=== PATIENT | female | born 1980 | race Caucasian/White ===

== ENCOUNTER 2016-12-24 23:19 | Emergency (ER) | payer SELFPAY ==
[2016-12-24] MEDS ORDERED: Lorazepam 2 MG/ML VIAL ONE (23:27)
[2016-12-24 23:58] LABS: Bilirubin Negative (Negative); Blood, Urine Trace (Negative); Clarity Slightly Cloudy (Clear); Glucose, Urine (Dipstick) Negative (Negative); Leukocyte Negative (Negative); Nitrite Negative (Negative); Protein, Urine (Dipstick) 30 mg/dL (Neg-Trace); Specific Gravity, Urine 1.025 (1.005-1.030); Urobilinogen 0.2 mg/dL (0.2-1.0)
[2016-12-25] LABS: Bacteria/HPF 1+ HPF (None Seen); Hyaline Casts/LPF 0-3 HYALINE CAST LPF (0-3 Hyaline); RBC/HPF 0-3 HPF (0-3); Squamous Epithelial 0-3 HPF (0-3); WBC/HPF 0-3 HPF (0-3)
[2016-12-25 00:01] LABS: Other Casts/LPF 4-6 FINELY GRAN LPF (0-3 Hyaline)
[2016-12-25] MEDS ORDERED: levETIRAcetam 500 MG/5 ML VIAL ONE (00:01)
[2016-12-25] MEDS ORDERED: Ketorolac Tromethamine 30 MG/ML VIAL ONE (00:04)
[2016-12-25] MEDS ORDERED: levETIRAcetam 1,500 MG in Sodium Chloride 0.9% 100 ML IVPB SCH (00:15)
[2016-12-25 00:22] LABS: #Basophils 0.1 thou/uL (0.0-0.2); #Lymphocytes 1.6 thou/uL (1.20-3.40); #Monocytes 0.8 thou/uL (0.11-0.59); #Neutrophils 11.7 thou/uL (1.40-6.50); %Basophils 0.6 % (0.0-1.0); %Eosinophils 0.1 % (0.0-10.0); %Lymphocytes 10.9 % (21.0-51.0); %Monocytes 5.7 % (0.0-10.0); %Neutrophils 82.7 % (42.0-75.0); Hemoglobin 13.6 g/dL (12.0-16.0); Mean Corpuscular HGB CONC 35.2 g/dL (32.0-36.0); Mean Corpuscular Volume 93.6 fl (81.0-99.0); Mean Platelet Volume 7.2 fL (7.4-10.4); Platelet Count 224 thou/uL (130-400); RBC Distribution Width 11.8 % (11.5-14.5); Red Blood Cell (RBC) Count 4.12 mill/uL (4.20-5.40); White Blood Cell (WBC) Count 14.2 thou/uL (4.8-10.8)
[2016-12-25 00:37] LABS: ALT (SGPT) 16 U/L (0-55); AST (SGOT) 18 U/L (5-34); Albumin 4.1 g/dL (3.5-5.0); Alkaline Phosphatase 89 U/L (40-150); Anion Gap 13 mmol/L (10-20); BUN (Urea Nitrogen) 6 mg/dL (7.0-18.7); Bilirubin, Total 0.6 mg/dL (0.2-1.2); CK (CPK) 114 U/L (29-168); Calc. Creatinine Clearance 0 mL/min (70-130); Carbon Dioxide 17 mmol/L (22-29); Chloride 113 mmol/L (98-107); Estimated GFR-MDRD 68; Globulin 3.2 g/dL (2.4-3.5); Glucose 113 mg/dL (70-105); Potassium 3.3 mmol/L (3.5-5.1); Protein, Total 7.3 g/dL (6.0-8.3); Sodium 140 mmol/L (136-145)
[2016-12-25] MEDS ORDERED: Potassium Chloride 20 MEQ TAB ONE (00:50)
[2016-12-25] MEDS ORDERED: Potassium Chloride 20 MEQ/100 ML PREMIX BAG ONE (00:50)
--- NOTE | 2016-12-25 09:45 | RAD ---
SACRUM AND COCCYX: Date: 12/24/16 Four views are submitted. The sacrum appears intact. The arcuate lines of the sacrum do not appear b roken. The SI joints appear normal. The pubic rings appear intact. A small piece of bone seen at the inferior aspect of the pubic symphysis on the right could be developmental or from an old injury. I t does not appear acute. On the lateral view, there is slight increased distance between the last two coccygeal segments and the remainder of the coccyx and sacrum. These two may be very slightly displaced posteriorly. If the re is coccygeal pain, the possibility of this being minimally disrupted is raised. I do not see an a ctual fracture line. IMPRESSION: Possible slight posterior displacement of the last two coccygeal segments. POS: HOME
--- NOTE | 2016-12-25 11:58 | CT ---
PRELIMINARY REPORT/[facility]/EMERGENCY AFTER HOURS PROCEDURE: EXAM: CT Head Without Intravenous Contrast. CLINICAL HISTORY: 36 years old, female; Pain; Headache; Migraine; Aura effect not specified; Does not respond to medic ation; With migrainosus (>72 hrs \T\ severe); Patient HX: Pt fell at home and hit head and buttocks. Pt complaining of head pain. Pt may had a seizure in the er. TECHNIQUE: Axial computed tomography images of the head/brain without intravenous contrast. COMPARISON: No relevant prior studies available. FINDINGS: Study is degraded by motion, streak and beam hardening artifacts predominately involving the lower b rain parenchyma. Given this limitation, there is no gross obvious intracranial hemorrhage, midline shift, mass, mass effect, hydrocephalus or extraaxial fluid collection in the visualized non-degraded portions of the brain parenchyma. Basal cisterns are patent. Orbits are unremarkable. Paranasal sinuses are clear. Mastoid air cells are clear. No acute fracture. Extra calvarial soft tissues unremarkable. IMPRESSION: No gross obvious acute intracranial abnormality in the visualized non-degraded portions of the brain parenchyma. Thank you for allowing us to participate in the care of your patient. Dictated and Authenticated by: Sherwin Scott MD 12/25/2016 12:01 AM Central Time ([place] \T\ [place]) FINAL REPORT CT OF TE BRAIN WITHOUT CONTRAST: Date: 12/24/[address] was performed following trauma. The ventricles are normal in size with no shift. No intracranial bleeding or extra-axial hematoma was seen. There is no sign of edema, mass, or stroke. The visible paranasal sinuses, including the sphenoid sinus, as well as the mastoid air cells, are clear. No skull fracture was seen. IMPRESSION: No acute intracranial findings. Report in agreement with preliminary reading by Eliseo. POS: HOME
== END 2016-12-25 02:25 | disposition home or self-care (01) ==
LOC: BURERS 23:19
DX: S32.10XA Unspecified fracture of sacrum, initial encounter for closed fracture (principal); R56.9 Unspecified convulsions; W18.30XA Fall on same level, unspecified, initial encounter
CPT/HCPCS: 36415; 51701; 70450; 72220; 80053; 81003; 81015; 82550; 85025; 93005; 96365; 96367; 96375; A4353; J1885; J1953; J2060; J2270; J3480; J7050

== ENCOUNTER 2017-01-03 08:19 | Emergency (ER) | payer SELFPAY ==
[2017-01-03] MEDS ORDERED: Ketorolac Tromethamine 60 MG/2 ML VIAL ONE ×3 (08:49→08:50)
[2017-01-03] MEDS ORDERED: Diazepam 10 MG/2 ML SYRINGE ONE ×2 (08:49→08:56)
[2017-01-03 09:26] LABS: Bilirubin Negative (Negative); Blood, Urine Negative (Negative); Clarity Slightly Cloudy (Clear); Glucose, Urine (Dipstick) Negative (Negative); Leukocyte Negative (Negative); Nitrite Negative (Negative); Protein, Urine (Dipstick) Negative (Neg-Trace); Urobilinogen 0.2 mg/dL (0.2-1.0); pH, Urine 5.5 (5.0-9.0)
[2017-01-04 23:12] LABS: Chlamydia by PCR Not Detected (NotDetected); GC by PCR Not Detected (NotDetected)
== END 2017-01-03 11:05 | disposition home or self-care (01) ==
LOC: BURERS 08:19
DX: M54.5 Low back pain (principal); R56.9 Unspecified convulsions; F17.210 Nicotine dependence, cigarettes, uncomplicated; Z79.899 Other long term (current) drug therapy
CPT/HCPCS: 81003; 87480; 87491; 87510; 87591; 87660; 96372; J1885; J2270; J3360

== ENCOUNTER 2017-01-12 23:31 | Emergency (ER) | payer SELFPAY ==
[2017-01-12] MEDS ORDERED: Lorazepam 2 MG/ML VIAL ONE (23:32)
[2017-01-13] LABS: #Basophils 0.1 thou/uL (0.0-0.2); #Lymphocytes 1.9 thou/uL (1.20-3.40); #Monocytes 0.5 thou/uL (0.11-0.59); #Neutrophils 5.9 thou/uL (1.40-6.50); %Basophils 0.6 % (0.0-1.0); %Eosinophils 0.5 % (0.0-10.0); %Lymphocytes 22.4 % (21.0-51.0); %Monocytes 6.4 % (0.0-10.0); Hemoglobin 15.3 g/dL (12.0-16.0); Mean Corpuscular Hemoglobin 32.3 pg (27.0-31.0); Mean Corpuscular Volume 92.3 fl (81.0-99.0); Mean Platelet Volume 7.3 fL (7.4-10.4); Platelet Count 240 thou/uL (130-400); RBC Distribution Width 11.3 % (11.5-14.5); Red Blood Cell (RBC) Count 4.73 mill/uL (4.20-5.40); White Blood Cell (WBC) Count 8.5 thou/uL (4.8-10.8)
[2017-01-13] MEDS ORDERED: levETIRAcetam 500 MG/5 ML VIAL ONE (00:03)
[2017-01-13 00:13] LABS: ALT (SGPT) 19 U/L (0-55); AST (SGOT) 16 U/L (5-34); Acetaminophen Less than 3.0 mcg/mL (10.0-30.0); Albumin 4.5 g/dL (3.5-5.0); Alcohol Less than 10 mg/dL (Less than 10); Alkaline Phosphatase 126 U/L (40-150); Anion Gap 20 mmol/L (10-20); BUN (Urea Nitrogen) 8 mg/dL (7.0-18.7); Bilirubin, Total 0.3 mg/dL (0.2-1.2); Calc. Creatinine Clearance 0 mL/min (70-130); Calcium 9.4 mg/dL (7.8-10.44); Carbon Dioxide 16 mmol/L (22-29); Chloride 109 mmol/L (98-107); Estimated GFR-MDRD 60; Globulin 3.3 g/dL (2.4-3.5); Glucose 122 mg/dL (70-105); Potassium 3.6 mmol/L (3.5-5.1); Protein, Total 7.8 g/dL (6.0-8.3); Salicylate Less than 5.0 mg/dL (15.0-30.0); Sodium 141 mmol/L (136-145)
[2017-01-13] MEDS ORDERED: HYDROcodone/Acetaminophen 5/325 mg Tablet ONE (01:07)
== END 2017-01-13 01:42 | disposition home or self-care (01) ==
LOC: BURERS 23:31
DX: R56.9 Unspecified convulsions (principal); F17.210 Nicotine dependence, cigarettes, uncomplicated; Z79.899 Other long term (current) drug therapy
CPT/HCPCS: 80053; 80307; 85025; J1953; J2060

== ENCOUNTER 2017-02-06 06:01 | Emergency (ER) | payer SELFPAY ==
[2017-02-06] MEDS ORDERED: Lorazepam 2 MG/ML VIAL ONE (06:15)
[2017-02-06] MEDS ORDERED: Ketorolac Tromethamine 30 MG/ML VIAL ONE (06:22)
[2017-02-06 07:02] LABS: #Basophils 0.1 thou/uL (0.0-0.2); #Lymphocytes 1.2 thou/uL (1.20-3.40); #Monocytes 0.6 thou/uL (0.11-0.59); #Neutrophils 8.3 thou/uL (1.40-6.50); %Basophils 0.8 % (0.0-1.0); %Eosinophils 0.2 % (0.0-10.0); Hemoglobin 14.7 g/dL (12.0-16.0); Mean Corpuscular HGB CONC 36.6 g/dL (32.0-36.0); Mean Corpuscular Hemoglobin 33.6 pg (27.0-31.0); Mean Corpuscular Volume 91.9 fl (81.0-99.0); Platelet Count 229 thou/uL (130-400); RBC Distribution Width 11.7 % (11.5-14.5); Red Blood Cell (RBC) Count 4.38 mill/uL (4.20-5.40); White Blood Cell (WBC) Count 10.2 thou/uL (4.8-10.8)
[2017-02-06] MEDS ORDERED: Ondansetron HCl/PF 4 MG/2 ML Vial ONE (07:06)
[2017-02-06 07:18] LABS: ALT (SGPT) 19 U/L (8-55); AST (SGOT) 19 U/L (5-34); Albumin 4.5 g/dL (3.5-5.0); Alkaline Phosphatase 111 U/L (40-150); Anion Gap 14 mmol/L (10-20); BUN (Urea Nitrogen) 7 mg/dL (7.0-18.7); Bilirubin, Total 0.2 mg/dL (0.2-1.2); Calc. Creatinine Clearance 0 mL/min (70-130); Calcium 9.2 mg/dL (7.8-10.44); Carbon Dioxide 20 mmol/L (22-29); Chloride 112 mmol/L (98-107); Estimated GFR-MDRD 74; Glucose 94 mg/dL (70-105); Potassium 3.8 mmol/L (3.5-5.1); Protein, Total 7.5 g/dL (6.0-8.3); Sodium 142 mmol/L (136-145)
== END 2017-02-06 07:40 | disposition home or self-care (01) ==
LOC: BURERS 06:01
DX: R56.9 Unspecified convulsions (principal); G25.3 Myoclonus; F17.210 Nicotine dependence, cigarettes, uncomplicated; Z79.899 Other long term (current) drug therapy
CPT/HCPCS: 36415; 80053; 80177; 85025; 96374; 96375; J1885; J2060; J2270; J2405